=== PATIENT | female | born 1975 | race Hispanic/Latino ===

== ENCOUNTER 2018-09-18 05:46 | Inpatient (IN) | payer SELFPAY ==
[2018-09-18] MEDS ORDERED: MORPHINE 4 MG/ML SYR ONE ×2 (06:22→07:58)
[2018-09-18] MEDS ORDERED: NA CHLORIDE 0.9% 1,000 ML ONE (06:23)
[2018-09-18] MEDS ORDERED: PIPER/TAZO/NS 3.375gm 3.375 GM/100 ML BAG ONE (06:23)
[2018-09-18] MEDS ORDERED: ONDANSETRON 4 MG/2 ML VIAL ONE (06:24)
[2018-09-18 06:46] LABS: Absolute Lymphocytes (CBC) 1.4 K/uL (0.7-4.9); Absolute Monocytes 1.1 K/uL (0.1-1.3); Absolute Neutrophil 10.2 K/uL (1.8-8.0); Basophils % 0.3 % (0-1.3); Eosinophils % 0.3 % (0-4.4); Hematocrit 38.7 % (36.0-45.0); Lymphocytes % 10.6 % (15.3-44.8); MPV 8.8 fL (7.6-11.3); Monocytes % 8.9 % (3.3-12.3); Protime INR 1.14; RBC Red Blood Cell Count 5.77 M/uL (3.86-4.86)
[2018-09-18 07:04] LABS: ALT/SGPT 18 U/L (12-78); AST/SGOT 17 U/L (15-37); Albumin 3.5 g/dL (3.4-5.0); Alkaline Phosphatase 154 U/L (45-117); BUN Blood Urea Nitrogen 11 mg/dL (7-18); Bicarbonate 22 mmol/L (21-32); Bilirubin Direct < 0.1 mg/dL (0-0.2); Bilirubin Total 0.3 mg/dL (0.2-1.0); Glucose Level 100 mg/dL (74-106); Lipase 100 U/L (73-393); Magnesium 1.7 mg/dL (1.8-2.4); NT PRO-BNP 114 pg/mL (<125); Protein, Total 8.2 g/dL (6.4-8.2); Sodium Level 137 mmol/L (136-145); Troponin (Emerg Dept Use Only) < 0.02 ng/mL (0.0-0.045)
[2018-09-18] MEDS ORDERED: MAGNESIUM SULFATE 1 gm IVPB 1 GM/100 ML BAG IV ONE (07:49)
--- NOTE | 2018-09-18 08:04 | RAD REPORT ---
EXAM DESCRIPTION: US - Abdomen Exam Limited - 09/18/2018 7:57 am CLINICAL HISTORY: r/o gallstone Right upper quadrant pain. COMPARISON: No comparisons FINDINGS: The gallbladder demonstrates no gallstones. No pericholecystic fluid or gallbladder wall t hickening. The common bile duct is normal measuring 4 mm. The liver demonstrates prominent benign cyst measuring 2.7 cm. IMPRESSION: Unremarkable examination.
--- NOTE | 2018-09-18 08:08 | ER ---
Nurse's Notes [facility] Name: Catalina Infante Age: 42 yrs Sex: Female : 1975 Arrival Date: 09/18/2018 Time: 05:49 Bed 18 Private MD: Diagnosis: Fever, unspecified;Abdominal tenderness-intractable;Elevated white blood cell count Presentation: 09/18 05:56 Presenting complaint: Patient states: started to have abdominal pain 10/10 pain score rr5 at 0300H right side under the rib cage area. Transition of care: patient was not received from another setting of care. Onset of symptoms was September 18, 2018 at 03:00. Risk Assessment: Do you want to hurt yourself or someone else? Patient reports no desire to harm self or others. Initial Sepsis Screen: Does the patient meet any 2 criteria? No. Patient's initial sepsis screen is negative. Does the patient have a suspected source of infection? No. Patient's initial sepsis screen is negative. Care prior to arrival: None. 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 - Social history:: Smoking status: Patient/guardian denies using tobacco, Patient/guardian denies using alcohol, street drugs. - Ebola Screening: : Patient negative for fever greater than or equal to 101.5 degrees Fahrenheit, and additional compatible Ebola Virus Disease symptoms Patient denies exposure to infectious person Patient denies travel to an Ebola-affected area in the 21 days before illness onset. Screenin:27 Abuse screen: Denies threats or abuse. Denies injuries from another. Nutritional rr5 screening: No deficits noted. Tuberculosis screening: No symptoms or risk factors identified. Fall Risk IV access (20 points). Total Marcum Fall Scale indicates No Risk (0-24 pts). Assessment: 06:00 General: Appears uncomfortable, ill, Behavior is calm, cooperative, appropriate for rr5 age, crying. Pain: Complains of pain in right upper quadrant Pain does not radiate. Pain currently is 10 out of 10 on a pain scale. Quality of pain is described as aching, Pain began gradually, Is intermittent. Neuro: Level of Consciousness is awake, alert, obeys commands, Oriented to person, place, time, situation, Appropriate for age. Cardiovascular: Capillary refill < 3 seconds Patient's skin is warm and dry. Respiratory: Airway is patent Respiratory effort is even, unlabored, Respiratory pattern is regular, symmetrical. GI: Bowel sounds present X 4 quads. Abd is soft Guarding noted in right upper quadrant. : No signs and/or symptoms were reported regarding the genitourinary system. EENT: No signs and/or symptoms were reported regarding the EENT system. Derm: No signs and/or symptoms reported regarding the dermatologic system. Musculoskeletal: Capillary refill < 3 seconds, Range of motion: intact in all extremities. 06:30 Reassessment: Patient appears in no apparent distress at this time. Patient is alert, rr5 oriented x 3, equal unlabored respirations, skin warm/dry/pink. no more pain. Patient states feeling better. Patient states symptoms have improved. 06:43 Reassessment: Patient appears in no apparent distress at this time. Patient is alert, rr5 oriented x 3, equal unlabored respirations, skin warm/dry/pink. Patient states feeling better. Patient states symptoms have improved. 07:00 Reassessment: Patient appears in no apparent distress at this time. Patient is alert, rr5 oriented x 3, equal unlabored respirations, skin warm/dry/pink. awaiting for reports Patient states symptoms have improved. 07:58 Reassessment: Patient and/or family updated on plan of care and expected duration. Pain tw2 level reassessed. Patient is alert, oriented x 3, equal unlabored respirations, skin warm/dry/pink. Patient states symptoms have not improved. 09:02 Reassessment: Patient appears in no apparent distress at this time. Patient and/or tw2 family updated on plan of care and expected duration. Pain level reassessed. Patient is alert, oriented x 3, equal unlabored respirations, skin warm/dry/pink. Vital Signs: 05:58 BP 133 / 82; Pulse 124; Resp 20; Temp 99.2; Pulse Ox 100% ; Weight 63.5 kg; Height 5 rr5 ft. 5 in. (165.10 cm); Pain 10/10; 06:30 BP 134 / 74; Pulse 104; Resp 19; Pulse Ox 98% ; rr5 07:57 BP 115 / 69; Pulse 106; Resp 20; Pulse Ox 96% on R/A; Pain 8/10; tw2 09:00 BP 121 / 72; Pulse 103; Resp 20; Pulse Ox 100% on R/A; tw2 05:58 Body Mass Index 23.30 (63.50 kg, 165.10 cm) rr5 ED Course: 05:49 Patient arrived in ED. al2 05:54 Adrien Morton MD is Attending Physician. lyssa 05:56 Woodrow Mehta, RN is Primary Nurse. rr5 05:58 Triage completed. rr5 06:15 Patient has correct armband on for positive identification. Placed in gown. Bed in low rr5 position. Call light in reach. Side rails up X2. ekg monitor on. Pulse ox on. NIBP on. 06:20 Inserted saline lock: 22 gauge in right forearm, using aseptic technique. Blood rr5 collected. 06:56 Primary Nurse role handed off by Woodrow Mehta, RN tw2 06:56 Katherine Wilkins, ATIF is Primary Nurse. tw2 06:56 Arm band placed on. tw2 06:57 XRAY Chest (1 view) In Process Unspecified. EDMS 07:00 Inserted saline lock: 20 gauge in left antecubital area, using aseptic technique. rr5 07:58 US Abdomen Limited In Process Unspecified. EDMS 08:03 Alva Hansen MD is Hospitalizing Provider. lyssa 08:36 CT completed. Patient tolerated procedure well. Patient moved to CT via wheelchair. Patient moved back from CT. 08:38 CT Chest, Abdomen, Pelvis - W/Contrast: iv only In Process Unspecified. EDMS 09:13 No provider procedures requiring assistance completed. Patient admitted, IV remains in tw2 place. Administered Medications: 06:20 Drug: NS 0.9% 1000 ml Route: IV; Rate: 1 bolus; Site: right forearm; rr5 07:20 Follow up: Response: No adverse reaction; IV Status: Completed infusion; IV Intake: tw2 1000ml 06:20 Drug: Zofran 4 mg Route: IVP; Site: right forearm; rr5 07:05 Follow up: Response: No adverse reaction rr5 06:22 Drug: morphine 4 mg Route: IVP; Site: right forearm; rr5 07:06 Follow up: Response: No adverse reaction rr5 06:25 Drug: Zosyn 3.375 grams Route: IVPB; Infused Over: 60 mins; Site: right forearm; rr5 07:06 Follow up: Response: No adverse reaction; IV Status: Completed infusion; IV Intake: rr5 100ml 07:46 Drug: Magnesium Sulfate 1 grams Route: IVPB; Infused Over: 1 hrs; Site: left tw2 antecubital; 08:47 Follow up: Response: No adverse reaction; IV Status: Completed infusion tw2 07:51 Drug: morphine 4 mg Route: IVP; Site: left antecubital; tw2 09:10 Follow up: Response: No adverse reaction; Pain is decreased tw2 Intake: 07:06 IV: 100ml; Total: 100ml. rr5 07:20 IV: 1000ml; Total: 1100ml. tw2 Outcome: 08:07 Decision to Hospitalize by Provider. lyssa 09:16 Admitted to Med/surg accompanied by tech, via wheelchair, room 216, with chart, Report tw2 called to ATIF Mckeon 09:16 Condition: stable 09:16 Instructed on the need for admit. 09:38 Patient left the ED. tw2 Signatures: Dispatcher [employer] Adrien Lucero MD MD cha Jones, Susan sj Wise, Tara, RN RN tw2 Deena Flores Raymond RN RN rr5
--- NOTE | 2018-09-18 08:08 | EDPHYS ---
Physician Documentation [facility] Name: Catalina Infante Age: 42 yrs Sex: Female : 1975 Arrival Date: 09/18/2018 Time: 05:49 Bed 18 Private MD: ED Physician Adrien Morton HPI: 09/18 06:06 This 42 yrs old Female presents to ER via Ambulatory with complaints of lyssa Abdominal Pain, Fever. 06:06 The patient reports fever, that was measured at 100 degrees Fahrenheit. Onset: The lyssa symptoms/episode began/occurred last night. Modifying factors: there are no obvious modifying factors. Associated signs and symptoms: Pertinent positives: abdominal pain, chills, nausea. Severity of symptoms: At their worst the symptoms were moderate. The patient has experienced similar episodes in the past, a few times. 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 - Social history:: Smoking status: Patient/guardian denies using tobacco, Patient/guardian denies using alcohol, street drugs. - Ebola Screening: : Patient negative for fever greater than or equal to 101.5 degrees Fahrenheit, and additional compatible Ebola Virus Disease symptoms Patient denies exposure to infectious person Patient denies travel to an Ebola-affected area in the 21 days before illness onset. ROS: 06:08 Constitutional: Negative for fever, chills, and weight loss, Eyes: Negative for injury, lyssa pain, redness, and discharge, ENT: Negative for injury, pain, and discharge, Neck: Negative for injury, pain, and swelling, Cardiovascular: Negative for chest pain, palpitations, and edema, Respiratory: Negative for shortness of breath, cough, wheezing, and pleuritic chest pain, Back: Negative for injury and pain, : Negative for injury, bleeding, discharge, and swelling, MS/Extremity: Negative for injury and deformity, Skin: Negative for injury, rash, and discoloration, Neuro: Negative for headache, weakness, numbness, tingling, and seizure. 06:08 Abdomen/GI: Positive for abdominal pain, abdominal cramps, of the right upper quadrant. Exam: 06:08 Constitutional: This is a well developed, well nourished patient who is awake, alert, lyssa and in no acute distress. Head/Face: Normocephalic, atraumatic. Eyes: Pupils equal round and reactive to light, extra-ocular motions intact. Lids and lashes normal. Conjunctiva and sclera are non-icteric and not injected. Cornea within normal limits. Periorbital areas with no swelling, redness, or edema. ENT: Nares patent. No nasal discharge, no septal abnormalities noted. Tympanic membranes are normal and external auditory canals are clear. Oropharynx with no redness, swelling, or masses, exudates, or evidence of obstruction, uvula midline. Mucous membranes moist. Neck: Trachea midline, no thyromegaly or masses palpated, and no cervical lymphadenopathy. Supple, full range of motion without nuchal rigidity, or vertebral point tenderness. No Meningismus. Chest/axilla: Normal chest wall appearance and motion. Nontender with no deformity. No lesions are appreciated. Respiratory: Lungs have equal breath sounds bilaterally, clear to auscultation and percussion. No rales, rhonchi or wheezes noted. No increased work of breathing, no retractions or nasal flaring. Back: No spinal tenderness. No costovertebral tenderness. Full range of motion. Female : Normal external genitalia. Skin: Warm, dry with normal turgor. Normal color with no rashes, no lesions, and no evidence of cellulitis. MS/ Extremity: Pulses equal, no cyanosis. Neurovascular intact. Full, normal range of motion. Neuro: Awake and alert, GCS 15, oriented to person, place, time, and situation. Cranial nerves II-XII grossly intact. Motor strength 5/5 in all extremities. Sensory grossly intact. Cerebellar exam normal. Normal gait. 06:08 Cardiovascular: Rate: tachycardic, Rhythm: regular, Pulses: Pulses are 4+ in bilateral radial, brachial, femoral, popliteal, posterior tibial and and dorsalis pedis arteries.. Heart sounds: normal, JVD: is not appreciated. Vital Signs: 05:58 BP 133 / 82; Pulse 124; Resp 20; Temp 99.2; Pulse Ox 100% ; Weight 63.5 kg; Height 5 rr5 ft. 5 in. (165.10 cm); Pain 10/10; 06:30 BP 134 / 74; Pulse 104; Resp 19; Pulse Ox 98% ; rr5 07:57 BP 115 / 69; Pulse 106; Resp 20; Pulse Ox 96% on R/A; Pain 8/10; tw2 09:00 BP 121 / 72; Pulse 103; Resp 20; Pulse Ox 100% on R/A; tw2 05:58 Body Mass Index 23.30 (63.50 kg, 165.10 cm) rr5 MDM: 05:54 Patient medically screened. [facility] 06:08 Data reviewed: vital signs, nurses notes, lab test result(s), EKG, radiologic studies, [facility] plain films, ultrasound. 09/18 06:05 Order name: Basic Metabolic Panel; Complete Time: 07:22 [facility] 09/18 06:05 Order name: CBC with Diff [facility] 09/18 06:05 Order name: LFT's; Complete Time: 07:22 [facility] 09/18 06:05 Order name: Magnesium; Complete Time: 07:22 [facility] 09/18 06:05 Order name: NT PRO-BNP; Complete Time: 07:22 [facility] 09/18 06:05 Order name: PT-INR; Complete Time: 07:22 [facility] 09/18 06:05 Order name: Troponin (emerg Dept Use Only); Complete Time: 07:22 [facility] 09/18 06:05 Order name: XRAY Chest (1 view) [facility] 09/18 06:05 Order name: Lipase; Complete Time: 07:22 [facility] 09/18 06:05 Order name: Urine Culture [facility] 09/18 06:54 Order name: CBC Smear Scan [facility] 09/18 07:02 Order name: Urine Dipstick--Ancillary (enter results) [facility] 09/18 07:02 Order name: Urine --Ancillary (enter results) [facility] 09/18 06:05 Order name: EKG; Complete Time: 06:07 [facility] 09/18 06:05 Order name: Cardiac monitoring; Complete Time: 06:26 [facility] 09/18 06:05 Order name: EKG - Nurse/Tech; Complete Time: 06:43 [facility] 09/18 06:05 Order name: IV Saline Lock; Complete Time: 06:26 [facility] 09/18 06:05 Order name: Labs collected and sent; Complete Time: 06:27 [facility] 09/18 06:05 Order name: O2 Per Protocol; Complete Time: 06:27 [facility] 09/18 06:05 Order name: O2 Sat Monitoring; Complete Time: 06: [facility] 09/18 06:05 Order name: Urine Dipstick-Ancillary (obtain specimen); Complete Time: 06:58 [facility] 09/18 07:23 Order name: US Abdomen Limited 09/18 08:01 Order name: CT Chest, Abdomen, Pelvis - W/Contrast: iv only [facility] 09/18 06:35 Order name: Urine Test (obtain specimen); Complete Time: 06:58 [facility] Administered Medications: 06:20 Drug: NS 0.9% 1000 ml Route: IV; Rate: 1 bolus; Site: right forearm; rr5 07:20 Follow up: Response: No adverse reaction; IV Status: Completed infusion; IV Intake: tw2 1000ml 06:20 Drug: Zofran 4 mg Route: IVP; Site: right forearm; rr5 07:05 Follow up: Response: No adverse reaction rr5 06:22 Drug: morphine 4 mg Route: IVP; Site: right forearm; rr5 07:06 Follow up: Response: No adverse reaction rr5 06:25 Drug: Zosyn 3.375 grams Route: IVPB; Infused Over: 60 mins; Site: right forearm; rr5 07:06 Follow up: Response: No adverse reaction; IV Status: Completed infusion; IV Intake: rr5 100ml 07:46 Drug: Magnesium Sulfate 1 grams Route: IVPB; Infused Over: 1 hrs; Site: left tw2 antecubital; 08:47 Follow up: Response: No adverse reaction; IV Status: Completed infusion tw2 07:51 Drug: morphine 4 mg Route: IVP; Site: left antecubital; tw2 09:10 Follow up: Response: No adverse reaction; Pain is decreased tw2 Disposition: 09/18/18 08:07 Hospitalization ordered by Alva Hansen for Observation. Preliminary diagnosis are Fever, unspecified, Abdominal tenderness - intractable, Elevated white blood cell count. - Bed requested for Telemetry/MedSurg (observation). - Status is Observation. tw2 - Condition is Stable. - Problem is new. - Symptoms have improved. UTI on Admission? No Signatures: Dispatcher [employer] EDMS Jenna Thomas Corey, MD MD [facility] Wilkins, Katherine, RN RN tw2 Woodrow Mehta, RN RN rr5 Corrections: (The following items were deleted from the chart) 07:25 07:22 Abdomen Limited+US.RAD.BRZ ordered. EDMS EDMS 08:59 08:07 Hospitalization Ordered by Alva Hansen MD for Observation. Preliminary diagnosis bd is Fever, unspecified; Abdominal tenderness - intractable; Elevated white blood cell count. Bed requested for Telemetry/MedSurg (observation). Status is Observation. Condition is Stable. Problem is new. Symptoms have improved. UTI on Admission? No. lyssa 09:38 08:59 09/18/2018 08:07 Hospitalization Ordered by Alva Hansen MD for Observation. tw2 Preliminary diagnosis is Fever, unspecified; Abdominal tenderness - intractable; Elevated white blood cell count. Bed requested for Telemetry/MedSurg (observation). Status is Observation. Condition is Stable. Problem is new. Symptoms have improved. UTI on Admission? No. bd
--- NOTE | 2018-09-18 08:15 | RAD REPORT ---
EXAM DESCRIPTION: RAD - Chest Single View - 09/18/2018 6:57 am CLINICAL HISTORY: ABDOMINAL DISTENTION Chest pain. COMPARISON: No comparisons FINDINGS: Portable technique limits examination quality. The lungs are underinflated resulting in vascular crowding. No focal infiltrate is seen to indicate d eveloping pneumonia. The heart is normal in size. No displaced fractures. IMPRESSION: Underinflated lungs resulting in vascular crowding.
--- NOTE | 2018-09-18 08:54 | RAD REPORT ---
EXAM DESCRIPTION: CT - Chest Abdomen Pelvis W Cont - 09/18/2018 8:36 am CLINICAL HISTORY: Chest and abdomen pain. Abdominal distention;Cough COMPARISON: No comparisons TECHNIQUE: Approximately 100 mL nonionic IV contrast was administered to the patient. All CT scans are performed using dose optimization technique as appropriate and may include automated exposure control or mA/KV adjustment according to patient size. FINDINGS: Abnormal soft tissue is seen in the anterior mediastinum measuring 6.4 x 2.1 cm. The lungs are clear.No pleural or pericardial effusion. Several low-density liver lesions are seen, the largest in the right lobe measuring 3 cm, likely repr esenting cysts. The gallbladder appears mildly distended. Spleen, pancreas, adrenal glands and kidney s are within normal limits. No bowel obstruction, free air, free fluid or abscess. Normal appendix. No pathologic lymphadenopath y in the abdomen or pelvis. No worrisome osseous finding. IMPRESSION: No acute abnormality is discerned. Anterior mediastinal soft tissue mass measuring 6.4 x 2.1 cm may represent a thymoma or lymphoma.
[2018-09-18 09:49] LABS: Anisocytosis 2+; Blood Morphology Comment NOTED (NOT SEEN); Hypochromasia 1+; Platelet Estimate ADEQ; Urine White Blood Cell Casts OK
[2018-09-18] MEDS ORDERED: ONDANSETRON 4 MG/2 ML VIAL IV PRN (09:57)
[2018-09-18] MEDS ORDERED: HYDROCODONE/APAP 7.5/325 MG TAB PO PRN (09:57)
[2018-09-18] MEDS: MORPHINE 4 MG/ML SYR IV PRN ×3 (10:31→20:47)
[2018-09-18] MEDS: D5 0.45 NS 1,000 ML IV SCH ×3 (10:34→20:00)
[2018-09-18] MEDS: ACETAMINOPHEN 500 MG TAB PO PRN (11:52)
[2018-09-18] MEDS ORDERED: INFLUENZA VACCINE (for 3y+) 0.5 ML DOSE IMVAC ONE (14:00)
[2018-09-18] MEDS ORDERED: PNEUMOCOCCAL VACCINE 0.5 ML IMVAC ONE (14:00)
[2018-09-18 14:08] LABS: Urine Appearance CLEAR; Urine Bilirubin NEGATIVE (NEG); Urine Blood 2+ (NEG); Urine Color YELLOW; Urine Glucose NEGATIVE (NEG); Urine Microscopic Reflex ORDER UMIC; Urine Protein NEGATIVE (NEG); Urine Specific Gravity >=1.030 (1.005-1.030); Urine pH 6.5 (5.0-7.0)
[2018-09-18 14:45] LABS: Urine Bacteria <20 /HPF (<20); Urine Culture Reflex Order NOT NEEDED
[2018-09-18 16:34] LABS: Urine Blood TRACE (NEG); Urine Glucose NEGATIVE (NEG); Urine Protein NEGATIVE (NEG); Urine Specific Gravity 1.015 (1.005-1.030)
[2018-09-18] MEDS: ENOXAPARIN 40 MG/0.4 ML SQ SCH (17:46)
[2018-09-18] MEDS: PIPER/TAZO/NS 3.375gm 3.375 GM/100 ML BAG IVPB SCH (17:58)
[2018-09-18 18:48] LABS: Arterial Blood Carboxyhemoglob 1.3 % (0-1.5); Blood Gas Oxyhemoglobin 95.1 % (94-97); Blood O2 Saturation 96.9 % (92-98.5)
--- NOTE | 2018-09-18 20:52 | EKG ---
Test Date: 2018-09-18 Test Time: 06:36:14 Pants Closer: RR MEASUREMENT RESULTS: Intervals: Rate: 105 TN: 134 QRSD: 82 QT: 308 QTc: 407 [place]: P: 37 TN: 134 QRS: 76 T: 71 INTERPRETIVE STATEMENTS: Sinus tachycardia Otherwise normal ECG No previous ECG available for comparison Electronically Signed On 09-18-18 20:48:11 BREAKER UP by Hal Valadez
--- NOTE | 2018-09-18 23:05 | HP ---
Date of Admission: 09/18/2018 Chief Complaint: Abdominal pain. History Of Present Illness: The patient is a 42-year-old female with no significant past medical his tory, who comes in to the hospital with acute onset of abdominal pain which is worse with food. She does report some nausea, vomiting, and chills. The patient denies any unusual foods or travel outsid e the country. The patient's symptoms are constant, moderate, progressively worsening. The patient came in to the ER for further evaluation. She was tachycardic. Her workup revealed a white count of 12,000 with left shift. UA was negative. Abdominal ultrasound did not show any gallbladder changes . No gall stones. No wall thickening. CT scan of the abdomen and pelvis did however show some mild ly distended gallbladder and incidental finding of anterior mediastinal soft tissue mass, 6 x 2 cm, r epresenting a thymoma or lymphoma. The patient was then referred for admission for abdominal pain. She was given IV fluids and pain medications along with IV antibiotics. When she was seen in the ER, she was awake, alert, oriented x3, in some mild distress due to pain. Past Medical History: She does have hypothyroidism. Past Surgical History: None. Allergies: NO KNOWN DRUG ALLERGIES. Home Medications: None. Social History: The patient is . Denies any tobacco use, alcohol use, or illicit drug use. Family History: Mother had gallbladder disease. Review of Systems: An 11-point system was reviewed and negative except as per HPI. Last Menstrual Period: 09/04/2018. Physical Examination: Vital Signs: Temperature 99.2, heart rate 124, blood pressure 133/82, respirations 20, and O2 of 100 % on room air. General: Awake, alert, oriented x3, in some moderate distress, ill-appearing female. HEENT: Normocephalic, atraumatic. PERRLA. EOMI. Dry mucous membranes. Oropharynx is clear. Conj unctivae are anicteric. Neck: Supple. No JVD. Trachea midline. CV: S1, S2. Sinus tachycardia. No murmurs. Peripheral pulses present. Respiratory: Moving air well bilaterally. No wheezing or stridor. No use of accessory muscles. Gastrointestinal: Abdomen is soft. Tenderness to palpation in the right upper quadrant. No rebound or guarding. No rigidity. Bowel sounds are positive. Extremities: No clubbing, cyanosis, or edema. Neurologic: Cranial nerves 2 through 12 are intact grossly. No focal neurological deficit. Speech is normal. Skin: No rashes. Normal skin turgor. Psychiatric: Mood is anxious. Affect is congruent with mood. Insight and judgment are good. Laboratory Data: WBC 12.7, H and H 12.3 and 38.7, platelets 313, and neutrophils 79%. INR 1.14. AB G is pending. Sodium 137, potassium 4, chloride 107, CO2 of 22, BUN 11, creatinine 0.48, glucose 100 , calcium 8.8, and magnesium 1.7. Lipase 100. UA was negative. No microscopy was done. Urine preg christofer test is pending. Imaging Studies: CT scan of the abdomen and pelvis shows no acute abnormality discerned. Anterior m ediastinal soft tissue mass measuring 6.4 x 2.1 cm, may represent a thymoma or lymphoma. Gallbladder appears mildly distended. Ultrasound of the abdomen shows unremarkable examination. Chest x-ray, p ersonally reviewed, shows underinflated lungs resulting in vascular crowding. Assessment And Plan: A 42-year-old female with; 1.Right upper quadrant abdominal pain. Imaging studies really do not show any gallstones or gallbla dder pathology other than some mild distention. White count is elevated. We will start on some IV a ntibiotics. Start on IV fluids. Keep n.p.o. 2.Systemic inflammatory response syndrome. The patient is tachycardic, slightly tachypneic. We azucena l start on IV fluids. We will obtain lactate, ABG, and procalcitonin. 3.Liver cyst. 4.Incidental finding of anterior mediastinal mass, could be thymoma or lymphoma. We will need biops y once the patient is more stable for further evaluation to rule out malignancy. We will need [place] gy evaluation. 5.Hypothyroidism. Plan: Admit the patient to Med-Surg, [facility] as observation. XIOMARA Voice ID: [id number]
[2018-09-19] MEDS: PIPER/TAZO/NS 3.375gm 3.375 GM/100 ML BAG IVPB SCH ×3 (00:26→17:00)
[2018-09-19] MEDS: LEVOTHYROXINE SOD 0.1 MG TAB PO SCH (05:34)
[2018-09-19] MEDS: D5 0.45 NS 1,000 ML IV SCH ×2 (06:12→17:03)
[2018-09-19 06:18] LABS: Absolute Lymphocytes (CBC) 1.8 K/uL (0.7-4.9); Absolute Monocytes 1.2 K/uL (0.1-1.3); Basophils % 0.3 % (0-1.3); Hematocrit 37.5 % (36.0-45.0); Lymphocytes % 13.8 % (15.3-44.8); MPV 8.8 fL (7.6-11.3); Monocytes % 9.6 % (3.3-12.3); RBC Red Blood Cell Count 5.62 M/uL (3.86-4.86)
[2018-09-19 06:33] LABS: ALT/SGPT 14 U/L (12-78); AST/SGOT 12 U/L (15-37); Albumin 3.1 g/dL (3.4-5.0); Alkaline Phosphatase 121 U/L (45-117); BUN Blood Urea Nitrogen 9 mg/dL (7-18); Bicarbonate 22 mmol/L (21-32); Bilirubin Total 0.3 mg/dL (0.2-1.0); Glucose Level 115 mg/dL (74-106); Magnesium 2.2 mg/dL (1.8-2.4); Potassium 3.8 mmol/L (3.5-5.1); Protein, Total 7.8 g/dL (6.4-8.2); Sodium Level 136 mmol/L (136-145)
[2018-09-19] MEDS ORDERED: KCL 20 MEQ/100 mL IVPB 20 MEQ/100 ML BAG IV SCH (07:00)
[2018-09-19] MEDS: MORPHINE 4 MG/ML SYR IV PRN (09:24)
[2018-09-19] MEDS: ACETAMINOPHEN 500 MG TAB PO PRN (09:25)
[2018-09-19] MEDS ORDERED: NA CHLORIDE 0.9% 250 ML ONE (10:18)
[2018-09-19] MEDS: ENOXAPARIN 40 MG/0.4 ML SQ SCH (17:05)
--- NOTE | 2018-09-19 19:21 | P.PN ---
Subjective Date of Service: 09/19/18 Patient seen and examined at bedside. No family at bedside. Chart reviewed and case discussed with nursing staff. Still complaining of right upper quadrant abdominal pain Denies any nausea or vomiting, constipation/diarrhea. Reports normal bowel movements Review of Systems 10-point ROS is otherwise unremarkable Physical Examination - Vital Signs Temperature: 98.9 F Blood Pressure: 125/68 Pulse: 100 Respirations: 18 Pulse Ox (%): 98 - Physical Exam General: Alert, In no apparent distress HEENT: Atraumatic, PERRLA, EOMI Neck: Supple, JVD not distended Respiratory: Clear to auscultation bilaterally, Normal air movement Cardiovascular: Regular rate/rhythm, Normal S1 S2 Gastrointestinal: Normal bowel sounds, Tenderness Musculoskeletal: No tenderness Integumentary: No rashes Neurological: Normal speech, Normal tone, Normal affect Lymphatics: No axilla or inguinal lymphadenopathy - Studies Laboratory Data (last 24 hrs) 09/19/18 05:58: Sodium 136, Potassium 3.8, BUN 9, Creatinine 0.41 L, Glucose 115 H, Magnesium 2.2 D, Total Bilirubin 0.3, AST 12 L, ALT 14, Alkaline Phosphatase 121 H 09/19/18 05:58: WBC 13.1 H, Hgb 11.9 L, Hct 37.5, Plt Count 267 Assessment And Plan - Current Problems (Diagnosis) (1) Abdominal pain Current Visit: Yes Status: Acute Qualifiers: Abdominal location: right upper quadrant Qualified Code(s): R10.11 - Right upper quadrant pain (2) Hypothyroidism Current Visit: Yes Status: Acute Qualifiers: Hypothyroidism type: unspecified Qualified Code(s): E03.9 - Hypothyroidism , unspecified (3) Mass of mediastinum Current Visit: Yes Status: Acute (4) Systemic inflammatory response syndrome Current Visit: Yes Status: Resolved - Plan This is a 42-year-old female with: Abdominal pain (Acute) R10.9 CT scan not impressive for any abdominal etiology, abdominal ultrasound negative for any acute findings. Unsure of etiology Continue pain control, Zofran for nausea May need GI intervention if no symptomatic improvement. Hypothyroidism (Acute) E03.9 Stable, continue home medications Liver cyst (Acute) K76.89. Systemic inflammatory response syndrome (Acute) R65.10 White blood cell count improving Vital signs improving Mediastinal mass Incidental finding on CT scan 6.4 x 2.1 cm anterior mediastinal mass, suspected lymphoma versus thymoma Patient will need further evaluation with possible biopsy. Consider oncology consultation DVT prophylaxis: Lovenox GI prophylaxis: None Diet: NPO Disposition: Pending symptomatic improvement,
[2018-09-20] MEDS: PIPER/TAZO/NS 3.375gm 3.375 GM/100 ML BAG IVPB SCH ×3 (00:11→17:11)
[2018-09-20] MEDS: D5 0.45 NS 1,000 ML IV SCH ×3 (02:00→17:09)
[2018-09-20 04:58] LABS: BUN Blood Urea Nitrogen 11 mg/dL (7-18); Bicarbonate 24 mmol/L (21-32); Glucose Level 108 mg/dL (74-106); Potassium 3.6 mmol/L (3.5-5.1); Sodium Level 140 mmol/L (136-145)
[2018-09-20] MEDS: LEVOTHYROXINE SOD 0.1 MG TAB PO SCH (06:30)
[2018-09-20 10:47] LABS: Absolute Lymphocytes (CBC) 1.9 K/uL (0.7-4.9); Absolute Monocytes 1.1 K/uL (0.1-1.3); Absolute Neutrophil 4.6 K/uL (1.8-8.0); Basophils % 0.3 % (0-1.3); Eosinophils % 0.9 % (0-4.4); Hematocrit 36.4 % (36.0-45.0); MPV 8.7 fL (7.6-11.3); Monocytes % 13.8 % (3.3-12.3); RBC Red Blood Cell Count 5.42 M/uL (3.86-4.86)
[2018-09-20 11:51] LABS: Blood Morphology Comment NOTED (NOT SEEN); Hypochromasia 1+; Ovalocytes 1+; Platelet Estimate ADEQ; Platelets, Giant FEW; Polychromasia 1+; Urine White Blood Cell Casts OK
[2018-09-20] MEDS ORDERED: KCL 20 MEQ/100 mL IVPB 20 MEQ/100 ML BAG IV SCH (12:00)
--- NOTE | 2018-09-20 16:01 | P.PN ---
Subjective Date of Service: 09/20/18 Chief Complaint: Right upper quadrant abdominal pain Subjective: Improving Patient seen and examined at bedside. No family at bedside. Chart reviewed and case discussed with nursing staff. Reports right upper quadrant abdominal pain has resolved Denies any nausea or vomiting, constipation/diarrhea. Reports normal bowel movements Review of Systems 10-point ROS is otherwise unremarkable Physical Examination - Vital Signs Temperature: 98.9 F Blood Pressure: 125/68 Pulse: 100 Respirations: 18 Pulse Ox (%): 98 - Physical Exam General: Alert, In no apparent distress, Oriented x3 HEENT: Atraumatic, PERRLA, EOMI Neck: Supple, JVD not distended Respiratory: Clear to auscultation bilaterally, Normal air movement Cardiovascular: Regular rate/rhythm, Normal S1 S2 Gastrointestinal: Normal bowel sounds, No tenderness Musculoskeletal: No tenderness Integumentary: No rashes Neurological: Normal speech, Normal tone, Normal affect Lymphatics: No axilla or inguinal lymphadenopathy - Studies Microbiology Data (last 24 hrs): 09/18/18 Unknown Clean Catch Urine [place] Count - Final 09/18/18 Unknown Clean Catch Urine - Final Assessment And Plan - Current Problems (Diagnosis) (1) Abdominal pain Current Visit: Yes Status: Acute Qualifiers: Abdominal location: right upper quadrant Qualified Code(s): R10.11 - Right upper quadrant pain (2) Hypothyroidism Current Visit: Yes Status: Acute Qualifiers: Hypothyroidism type: unspecified Qualified Code(s): E03.9 - Hypothyroidism , unspecified (3) Mass of mediastinum Current Visit: Yes Status: Acute (4) Systemic inflammatory response syndrome Current Visit: Yes Status: Resolved - Plan This is a 42-year-old female with: Abdominal pain (Acute) R10.9 CT scan not impressive for any abdominal etiology, abdominal ultrasound negative for any acute findings. Unsure of etiology Continue pain control, Zofran for nausea May need GI intervention if no symptomatic improvement. Hypothyroidism (Acute) E03.9 Stable, continue home medications Liver cyst (Acute) K76.89. Systemic inflammatory response syndrome (Acute) R65.10 Resolved White blood cell count normalized Vital signs normal Mediastinal mass Incidental finding on CT scan; asymptomatic; CBC normal this morning 6.4 x 2.1 cm anterior mediastinal mass, suspected lymphoma versus thymoma Discussed case with Dr. Jones in radiology. He will be unable to do a biopsy here is masses to close to the urine/wrapped around it. Discussed case with Dr. Weir, oncology consultation placed. Will await recommendations. ADL DVT prophylaxis: Lovenox GI prophylaxis: None Diet: Regular diet Disposition: Pending symptomatic improvement, and oncology consultation
[2018-09-20] MEDS: ENOXAPARIN 40 MG/0.4 ML SQ SCH (17:11)
[2018-09-21] MEDS: D5 0.45 NS 1,000 ML IV SCH ×2 (00:36→08:54)
[2018-09-21] MEDS: PIPER/TAZO/NS 3.375gm 3.375 GM/100 ML BAG IVPB SCH ×2 (00:38→08:46)
[2018-09-21] MEDS: LEVOTHYROXINE SOD 0.1 MG TAB PO SCH (05:45)
[2018-09-21] MEDS ORDERED: POTASSIUM CL SA 10 MEQ TAB PO ONE (09:00)
--- NOTE | 2018-09-28 09:50 | P.DS ---
Admission Date: 09/19/18 Discharge Date: 09/21/18 Disposition: ROUTINE DISCHARGE Discharge Condition: GOOD Reason for Admission: Right upper quadrant abdominal pain Consultations: Oncology, Dr. Petty - Problems (1) Abdominal pain Status: Acute Qualifiers: Abdominal location: right upper quadrant Qualified Code(s): R10.11 - Right upper quadrant pain (2) Hypothyroidism Status: Acute Qualifiers: Hypothyroidism type: unspecified Qualified Code(s): E03.9 - Hypothyroidism , unspecified (3) Mass of mediastinum Status: Acute (4) Systemic inflammatory response syndrome Status: Resolved Brief History of Present Illness: The patient is a 42-year-old female with no significant past medical history, who comes in to the hospital with acute onset of abdominal pain which is worse with food. She does report some nausea, vomiting, and chills. The patient denies any unusual foods or travel outside the country. The patient's symptoms are constant, moderate, progressively worsening. The patient came in to the ER for further evaluation. She was tachycardic. Her workup revealed a white count of 12,000 with left shift. UA was negative. Abdominal ultrasound did not show any gallbladder changes. No gall stones. No wall thickening. CT scan of the abdomen and pelvis did however show some mildly distended gallbladder and incidental finding of anterior mediastinal soft tissue mass, 6 x 2 cm, representing a thymoma or lymphoma. The patient was then referred for admission for abdominal pain. She was given IV fluids and pain medications along with IV antibiotics. When she was seen in the ER, she was awake, alert, oriented x3, in some mild distress due to pain. Hospital Course: Systemic inflammatory response syndrome (Acute) R65.10 Resolved with IV fluids. White blood cell count normalized Vital signs normal Abdominal pain (Acute) R10.9 CT scan not impressive for any abdominal etiology, abdominal ultrasound negative for any acute findings. Unsure of etiology though urine with slight hematuria. Unsure if she may have passed a kidney stone. Her abdominal pain resolved completely prior to discharge. Unable to consult GI as no GI service available. Hypothyroidism (Acute) E03.9 Stable, no changes made to medication upon discharge. Liver cyst (Acute) K76.89. Mediastinal mass Incidental finding on CT scan; asymptomatic; CBC normal prior to discharge. 6.4 x 2.1 cm anterior mediastinal mass, suspected lymphoma versus thymoma Discussed case with Dr. Jones in radiology. He will be unable to do a biopsy here as mass is to close to the aorta/wrapped around it. Discussed case with Dr. Weir, oncology consultation. Patient was not seen by oncology but case was re-discussed with Dr. Petty (who was bilingual sales consultant). Transfer was attempted though denied because patient was hemodynamically stable, aymptomatic , etc, it was not deemed to be an urgent procedure. Case was discussed with [facility] and they stated that they would be able to see her outpatient for biopsy. Information was provided to patient and she was explained the importance of following up. She and verbalized understanding. She remained otherwise stable Vital Signs/Physical Exam: Temp Pulse Resp BP Pulse Ox 98.3 F 90 18 128/66 96 09/21/18 12:00 09/21/18 12:00 09/21/18 12:00 09/21/18 12:00 09/21/18 12:00 General: Alert, In no apparent distress HEENT: Atraumatic, PERRLA, EOMI Neck: Supple, JVD not distended Respiratory: Clear to auscultation bilaterally, Normal air movement Cardiovascular: Regular rate/rhythm, Normal S1 S2 Gastrointestinal: Normal bowel sounds, No tenderness Musculoskeletal: No tenderness Integumentary: No rashes Neurological: Normal speech, Normal tone, Normal affect Lymphatics: No axilla or inguinal lymphadenopathy Laboratory Data at Discharge: WBC 7.7 K/uL (4.3-10.9) D 09/20/18 10:12 Hgb 11.8 g/dL (12.0-15.0) L 09/20/18 10:12 Hct 36.4 % (36.0-45.0) 09/20/18 10:12 Plt Count 285 K/uL (152-406) 09/20/18 10:12 PT 13.5 SECONDS (9.5-12.5) H 09/18/18 06:10 INR 1.14 09/18/18 06:10 Sodium 140 mmol/L (136-145) 09/20/18 04:08 Potassium 3.6 mmol/L (3.5-5.1) 09/21/18 05:59 BUN 11 mg/dL (7-18) 09/20/18 04:08 Creatinine 0.43 mg/dL (0.55-1.3) L 09/20/18 04:08 Glucose 108 mg/dL (74-106) H 09/20/18 04:08 Magnesium 2.2 mg/dL (1.8-2.4) D 09/19/18 05:58 Total Bilirubin 0.3 mg/dL (0.2-1.0) 09/19/18 05:58 AST 12 U/L (15-37) L 09/19/18 05:58 ALT 14 U/L (12-78) 09/19/18 05:58 Alkaline Phosphatase 121 U/L (45-117) H 09/19/18 05:58 Lipase 100 U/L (73-393) 09/18/18 06:10 Home Medications: Levothyroxine Sodium 200 mcg PO DAILY 09/18/18 Patient Discharge Instructions: Please follow up with the primary care physician in 1 week. Please follow up with [facility] for the anterior mediastinal mass. You will need to call the clinic at [phone] to make an appointment. As discussed, please call as soon as possible to schedule the appointment for further evaluation. Please return to the ER for worsening symptoms Diet: Regular Activity: Ad teodoro Time spent managing pt's care (in minutes): 55
== END 2018-09-21 15:33 | disposition home or self-care (01) | DRG 392 ==
LOC: ER 05:46 → ERHOLD 08:35 → 2ND 09:16 → OBSVTOIN 09-19 10:34
PROVIDERS: ADMIT Family Medicine; ATTEND Family Medicine
DX: R10.11 Right upper quadrant pain (principal); K76.89 Other specified diseases of liver; E03.9 Hypothyroidism, unspecified; R22.2 Localized swelling, mass and lump, trunk; R31.9 Hematuria, unspecified
CPT/HCPCS: 36415; 71045; 71260; 74177; 76705; 80048; 80053; 80076; 81003; 81015; 81025; 82805; 83605; 83690; 83735; 83880; 84132; 84484; 85025; 85610; 87040; 87086; 87088; 93005; 94760; 99285; G0378; J1650; J2405; J2543; J3475; J7030; Q9967

== ENCOUNTER 2019-09-23 09:42 | Emergency (ER) | payer OTHER, SELFPAY ==
--- OUTSIDE RECORDS SUMMARY | 2019-09-23 09:44 | XMS REPORT ---
:1975 [facility] Organization [facility] Address [address] [place] [address] [address] [place] [address] Care Team Providers Name Role Phone Unavailable Unavailable Unavailable Problems This patient has no known problems. Allergies, Adverse Reactions, Alerts This patient has no known allergies or adverse reactions. Medications This patient has no known medications.
[2019-09-23] MEDS ORDERED: IBUPROFEN 400 MG TAB ONE (10:30)
[2019-09-23] MEDS ORDERED: ACETAMINOPHEN 325 MG TABLET ONE (10:30)
--- NOTE | 2019-09-23 10:35 | ER ---
Nurse's Notes [facility] Name: Catalina Infante Age: 43 yrs Sex: Female : 1975 Arrival Date: 09/23/2019 Time: 09:46 Bed 5 Private MD: Diagnosis: Sprain of ankle-left Presentation: 09/23 09:52 Presenting complaint: Patient states: slipped and fell at work one hour ago twisting ss ankle. Pt c/o L ankle pain. Transition of care: patient was not received from another setting of care. Onset of symptoms was September 23, 2019. Risk Assessment: Do you want to hurt yourself or someone else? Patient reports no desire to harm self or others. Initial Sepsis Screen: Does the patient meet any 2 criteria? No. Patient's initial sepsis screen is negative. Does the patient have a suspected source of infection? No. Patient's initial sepsis screen is negative. Note Pt took Advil 1 hour ago, just after injury occured. Care prior to arrival: None. 09:52 Method Of Arrival: Wheelchair ss 09:52 Acuity: KEVIN 4 ss Historical: - Allergies: 09:55 No Known Allergies; ss - Home Meds: 09:55 levothyroxine oral [Active]; ss - PMHx: 09:55 Hypothyroidism; ss - PSHx: 09:55 Hysterectomy; ss - Immunization history:: Adult Immunizations up to date. - Coronavirus screen:: The patient has NOT traveled to [place], [place], or [place] in the past 14 days. Proceed with normal triage process as indicated. - Social history:: Smoking status: Patient denies any tobacco usage or history of. - Ebola Screening: : Patient denies exposure to infectious person Patient denies travel to an Ebola-affected area in the 21 days before illness onset. Screenin:56 Abuse screen: Denies threats or abuse. Nutritional screening: No deficits noted. em Tuberculosis screening: No symptoms or risk factors identified. Fall Risk None identified. Assessment: 09:57 General: Appears in no apparent distress. comfortable, well groomed, well developed, em well nourished, Behavior is calm, cooperative, appropriate for age. Pain: Complains of pain in left medial malleolus Pain currently is 9 out of 10 on a pain scale. Pain began 1 hour ago. Neuro: Level of Consciousness is awake, alert, obeys commands, Oriented to person, place, time, situation, Appropriate for age. Cardiovascular: Capillary refill < 3 seconds Patient's skin is warm and dry. Respiratory: Airway is patent Respiratory effort is even, unlabored, Respiratory pattern is regular, symmetrical. Derm: Skin is intact, is healthy with good turgor, Skin is pink, warm \T\ dry. Musculoskeletal: Circulation, motion, and sensation intact. Capillary refill < 3 seconds, Range of motion: limited in left ankle Swelling present in left lateral malleolus Reports unable to bear weight. 11:00 Reassessment: Patient appears in no apparent distress at this time. Patient and/or em family updated on plan of care and expected duration. Pain level reassessed. Patient is alert, oriented x 3, equal unlabored respirations, skin warm/dry/pink. rates pain 7/10 Patient states feeling better. Vital Signs: 09:55 Pulse 102; Resp 15; Temp 98.5(TE); Pulse Ox 99% on R/A; Height 5 ft. 0 in. (152.40 cm); ss Pain 9/10; 09:55 BP 136 / 97; ss 11:00 BP 122 / 70; Pulse 91; Resp 18; Pulse Ox 99% on R/A; Pain 7/10; em ED Course: 09:42 Adrien Vegas PA is PHCP. cp 09:42 Adrien Morton MD is Attending Physician. cp 09:46 Patient arrived in ED. mr 09:48 Edis Truong, RN is Primary Nurse. em 09:53 Triage completed. ss 09:56 Patient has correct armband on for positive identification. Bed in low position. Call em light in reach. Adult w/ patient. Pulse ox on. NIBP on. Ice pack to injury. 09:56 Arm band placed on. em 10:11 XRAY Ankle LEFT 3 view In Process Unspecified. EDMS 11:00 Crutch training done. Air stirrup applied to left ankle. em 11:16 No provider procedures requiring assistance completed. Patient did not have IV access em during this emergency room visit. Administered Medications: 10:13 Not Given (Physician Discretion): Ibuprofen 800 mg PO once em 10:29 Drug: Tylenol 650 mg Route: PO; em 11:18 Follow up: Response: No adverse reaction; Marked relief of symptoms; Pain is decreased em 10:29 Drug: Motrin 400 mg Route: PO; em 11:18 Follow up: Response: No adverse reaction; Marked relief of symptoms; Pain is decreased em Outcome: 10:35 Discharge ordered by . cp 11:16 Discharged to home via wheelchair, with crutches, with family. em 11:16 Condition: good 11:16 Discharge instructions given to patient, family, Instructed on discharge instructions, follow up and referral plans. medication usage, crutch walking, Demonstrated understanding of instructions, follow-up care, medications, crutch walking, Prescriptions given X 1. 11:19 Patient left the ED. em Signatures: Dispatcher [employer] Griselda Sylvester Edgar, RN RN em Smirch, Shelby, RN RN ss Adrien Vegas, ÁNGEL NEAL cp
--- NOTE | 2019-09-23 10:35 | EDPHYS ---
Physician Documentation [facility] Name: Catalina Infante Age: 43 yrs Sex: Female : 1975 Arrival Date: 09/23/2019 Time: 09:46 Bed 5 Private MD: NAYELI Physician Adrien Morton HPI: 09/23 10:00 This 43 yrs old Female presents to ER via Wheelchair with complaints of Foot cp Injury, Ankle Injury. 10:00 The patient presents with an injury, pain, that is acute. The complaints affect the cp left lateral ankle. 10:00 Context: The problem was sustained at work, resulted from twisting of the extremity, cp during a fall. 10:00 Onset: The symptoms/episode began/occurred 1 hour(s) ago. Associated signs and cp symptoms: Pertinent negatives calf tenderness, numbness, tingling. Treatment prior to arrival includes: no previous treatment. Historical: - Allergies: 09:55 No Known Allergies; ss - Home Meds: 09:55 levothyroxine oral [Active]; ss - PMHx: 09:55 Hypothyroidism; ss - PSHx: 09:55 Hysterectomy; ss - Immunization history:: Adult Immunizations up to date. - Coronavirus screen:: The patient has NOT traveled to [place], [place], or [place] in the past 14 days. Proceed with normal triage process as indicated. - Social history:: Smoking status: Patient denies any tobacco usage or history of. - Ebola Screening: : Patient denies exposure to infectious person Patient denies travel to an Ebola-affected area in the 21 days before illness onset. ROS: 10:05 Constitutional: Negative for body aches, chills, fever. cp 10:05 Eyes: Negative for injury, pain, redness, and discharge. cp 10:05 ENT: Negative for drainage from ear(s), ear pain, sore throat, difficulty swallowing, difficulty handling secretions. 10:05 Respiratory: Negative for cough, wheezing. 10:05 Abdomen/GI: Negative for abdominal pain, vomiting, diarrhea, constipation. 10:05 Back: Negative for pain at rest, pain with movement. 10:05 MS/extremity: Positive for pain, swelling, tenderness, of the left lateral ankle, Negative for decreased range of motion, deformity, paresthesias. 10:05 All other systems are negative. Exam: 10:10 Constitutional: The patient appears in no acute distress, alert, awake, well developed, cp well nourished. 10:10 Head/Face: Normocephalic, atraumatic. cp 10:10 Eyes: Periorbital structures: appear normal, Conjunctiva: normal, Lids and lashes: appear normal. 10:10 ENT: External ear(s): are unremarkable, Nose: is normal, Mouth: is normal. 10:10 Chest/axilla: Inspection: normal. 10:10 Cardiovascular: Rate: tachycardic. 10:10 Respiratory: the patient does not display signs of respiratory distress, Respirations: normal, labored breathing, is not present. 10:10 Abdomen/GI: Inspection: abdomen appears normal. 10:10 Back: pain, is absent. 10:10 Musculoskeletal/extremity: Extremities: grossly normal except: noted in the left lateral ankle: pain, swelling, tenderness, There is no evidence of decreased ROM, deformity, Perfusion: the extremity is normally perfused throughout, Sensation intact. no pain with palpation noted at proximal left fibula or base of left fifth metatarsal, Achilles tendon intact. Vital Signs: 09:55 Pulse 102; Resp 15; Temp 98.5(TE); Pulse Ox 99% on R/A; Height 5 ft. 0 in. (152.40 cm); ss Pain 9/10; 09:55 BP 136 / 97; ss 11:00 BP 122 / 70; Pulse 91; Resp 18; Pulse Ox 99% on R/A; Pain 7/10; em Procedures: 11:15 Splinting: Splint applied to left ankle using Air Cast, applied by nurse. Examined by cp me, post splint application: neurovascular intact, Patient tolerated well. MDM: 09:48 Patient medically screened. lyssa 10:00 Differential diagnosis: dislocation, closed fracture, sprain, Achilles rupture, foot cp fracture. 10:35 Data reviewed: vital signs, nurses notes, radiologic studies, plain films, and as a cp result, I will discharge patient. 10:35 Test interpretation: by ED physician or midlevel provider: plain radiologic studies, cp xrays of left ankle negative for fracture or dislocation. Counseling: I had a detailed discussion with the patient and/or guardian regarding: the historical points, exam findings, and any diagnostic results supporting the discharge/admit diagnosis, radiology results, to return to the emergency department if symptoms worsen or persist or if there are any questions or concerns that arise at home. 09/23 09:58 Order name: XRAY Ankle LEFT 3 view; Complete Time: 10:50 cp 09/23 10:50 Interpretation: Report reviewed. cp 09/23 10:34 Order name: Crutches; Complete Time: 10:46 cp 09/23 10:34 Order name: Aircast Ankle Splint; Complete Time: 10:46 cp Administered Medications: 10:13 Not Given (Physician Discretion): Ibuprofen 800 mg PO once em 10:29 Drug: Tylenol 650 mg Route: PO; em 11:18 Follow up: Response: No adverse reaction; Marked relief of symptoms; Pain is decreased em 10:29 Drug: Motrin 400 mg Route: PO; em 11:18 Follow up: Response: No adverse reaction; Marked relief of symptoms; Pain is decreased em Disposition: 09/24 07:29 Co-signature as Attending Physician, Adrien Morton MD I agree with the assessment and lyssa plan of care. Disposition: 09/23/19 10:35 Discharged to Home. Impression: Sprain of ankle - left. - Condition is Stable. - Discharge Instructions: Ankle Sprain. - Prescriptions for Naprosyn 500 mg Oral Tablet - take 1 tablet by ORAL route 2 times per day take with food; 20 tablet. - Work release form, Medication Reconciliation Form, Thank You Letter, Antibiotic Education, Prescription Opioid Use form. - Follow up: Private Physician; When: 5 - 6 days; Reason: Recheck today's complaints. - Problem is new. - Symptoms have improved. Signatures: Dispatcher [employer] Adrien Lucero MD MD cha Munoz, Edgar, RN RN Megha Hurtaod RN RN Adrien Vegas PA PA cp Corrections: (The following items were deleted from the chart) 09/23 11:19 10:35 09/23/2019 10:35 Discharged to Home. Impression: Sprain of ankle - left. em Condition is Stable. Forms are Medication Reconciliation Form, Thank You Letter, Antibiotic Education, Prescription Opioid Use. Follow up: Private Physician; When: 5 - 6 days; Reason: Recheck today's complaints. Problem is new. Symptoms have improved. cp
--- NOTE | 2019-09-23 10:48 | RAD REPORT ---
EXAM DESCRIPTION: RAD - Ankle Left 3 View - 09/23/2019 10:13 am CLINICAL HISTORY: Slip and fall, left ankle pain, twisting injury COMPARISON: None. FINDINGS: No fracture, dislocation or periosteal reaction. No joint effusion seen. No joint space na rrowing. Mild lateral soft tissue swelling present. Small plantar spur present. IMPRESSION: Mild soft tissue swelling without fracture identifiable.
[2019-09-23 11:25] VITALS: TEMP 98.5; O2SAT 99
[2019-09-23 11:27] VITALS: BP 122/70
== END 2019-09-23 11:19 | disposition home or self-care (01) ==
LOC: ER 09:42
DX: S93.402A Sprain of unspecified ligament of left ankle, initial encounter (principal); X50.1XXA Overexertion from prolonged static or awkward postures, initial encounter; Y93.9 Activity, unspecified; Y92.89 Other specified places as the place of occurrence of the external cause; Y99.8 Other external cause status; E03.9 Hypothyroidism, unspecified
CPT/HCPCS: 99284